=== PATIENT | female | born 1995 | race Caucasian/White ===

== ENCOUNTER 2021-04-16 10:06 | Outpatient (CLI) | payer OTHER, SELFPAY ==
[2021-04-16 10:42] LABS: Basophils Percent Auto 0.3 % (0.2-1.2); Eosinophils Absolute Auto 0.1 K/mm3 (0-0.3); Hematocrit 31.9 % (37.0-47.0); Immature Granulocyte Absolute 0.05 K/mm3 (0.00-0.031); Immature Granulocyte Percent A 0.5 % (0-0.5); Lymphocytes Absolute Auto 1.48 K/mm3 (0.9-3.2); Lymphocytes Percent Auto 14.4 % (18.3-44.2); Mean Corpuscular HGB Conc 31.3 g/dl (32-36); Mean Corpuscular Hemoglobin 24.8 pg (26-34); Mean Corpuscular Volume 79.2 fl (80-100); Monocytes Absolute Auto 0.7 K/mm3 (0.1-0.6); Monocytes Percent Auto 6.6 % (2.6-8.5); Neutrophils Absolute Auto 7.9 K/mm3 (1.3-6.7); Neutrophils Percent Auto 77.2 % (45.5-73.1); Platelet Count Result 228 k/mm3 (150-375); Red Blood Count 4.03 M/mm3 (4.2-5.4); Red Cell Distribution Width 14.1 % (11.5-14.5); White Blood Count 10.3 K/mm3 (4.5-10.0)
[2021-04-16 10:45] VITALS: BP 123/87; PULSE 135
[2021-04-16 10:52] LABS: Alanine Aminotransferase 11 U/L (4-35); Albumin Level 3.7 g/dL (3.5-5.1); Alkaline Phosphatase 138 U/L (38-126); Anion Gap 9 mmol/L (8-16); Aspartate Amino Transferase 18 U/L (14-36); Bilirubin,Total 0.2 mg/dL (0.2-1.3); Blood Urea Nitrogen 5 mg/dL (7-17); Calcium 9.1 mg/dL (8.4-10.2); Carbon Dioxide 19 mmol/L (22-30); Chloride 110 mmol/L (98-107); Estimated Glomerular Filt Rate > 60; Glucose 82 mg/dL (65-110); Potassium 4.1 mmol/L (3.4-5.0); Sodium 138 mmol/L (137-145)
[2021-04-16 10:55] LABS: Add Urine Microscopic? YES; Appearance Urine Clear (Clear); Bacteria Urine Trace /hpf; Bilirubin Urine Negative (Negative); Blood Urine Negative (Negative); Color Urine Straw (Yellow); Glucose Urine UA Negative (Negative); Ketones Urine Negative (Negative); Leukocyte Esterase Ur 1+ LEU/UL (NEGATIVE); Mucus Urine Rare /lpf; Nitrate Urine Negative (Negative); Protein Urine Negative (Negative); RBC Urine 0-2 /hpf (0-2); Squamous Epithelial Cell Urine Many /hpf (Few); Urobilinogen Urine Negative mg/dL (<2.0); WBC Urine 0-3 /hpf (0-3)
[2021-04-16 11:00] VITALS: BP 140/89; PULSE 127
[2021-04-16 11:00] LABS: Creatinine Urine 12.4 mg/dL; Total Protein Urine Random 15 mg/dL; Ur Ttl Prot Creatinine Ratio 1.21 mg/mg (0-0.20)
[2021-04-16 11:09] LABS: Specific Grav Ur 1.003 (1.001-1.035)
[2021-04-16 11:16] VITALS: BP 122/80; PULSE 113
--- NOTE | 2021-04-16 11:23 | PC.NURSE ---
Grady Cavanaugh notified of BP's, Labs results and NST. Order for repeart P/C ration.
[2021-04-16 12:04] LABS: Creatinine Urine 54.6 mg/dL; Total Protein Urine Random 11 mg/dL
--- NOTE | 2021-04-16 12:14 | PC.NURSE ---
Grady Cavanaugh notified of repeat P/C ratio. Ok to dc home with 24 hour urine.
[2021-04-16 12:25] VITALS: BP 123/87; PULSE 128
== END 2021-04-16 12:25 | disposition home or self-care (01) ==
LOC: ANHOBOP 10:11 → ANHLDR 10:12
PROVIDERS: Advanced Practice Midwife; PCP Family Medicine; Visit Provider Obstetrics & Gynecology
DX: O13.9 Gestational [pregnancy-induced] hypertension without significant proteinuria, unspecified trimester (principal)
CPT/HCPCS: 36415; 59025; 80053; 81001; 82570; 84156; 84550; 85025; 87077; 87086; 87088; 99199

== ENCOUNTER 2021-04-17 13:06 | Outpatient (NON) | payer OTHER, SELFPAY ==
[2021-04-17 13:28] VITALS: BMI 35.9
[2021-04-17 15:40] LABS: Collection Time Urine 24 HOURS
[2021-04-17 15:41] LABS: Patient Weight 235 Lbs; Total Volume 24 Hour Urine 1300 ml
[2021-04-17 15:54] LABS: Creatinine Clearance Urine 231.1 ml/min (75-125); Creatinine Urine 129.1 mg/dL; Total Protein Urine 24 Hr 78 mg/24hr (28-141); Total Protein Urine Random 6 mg/dL
== END 2021-04-17 13:07 | disposition home or self-care (01) ==
LOC: ANHOBOP 13:10
PROVIDERS: PCP Family Medicine; Visit Provider Advanced Practice Midwife
DX: O13.9 Gestational [pregnancy-induced] hypertension without significant proteinuria, unspecified trimester (principal); Z3A.00 Weeks of gestation of pregnancy not specified
CPT/HCPCS: 81050; 82575; 84156

== ENCOUNTER 2021-04-19 16:48 | Inpatient (IN) | payer OTHER, SELFPAY ==
[2021-04-19] VITALS (14 sets, daily range): BP systolic 119–143; BP diastolic 76–87; PULSE 94–113; TEMP 36.6–37.2; BMI 35.2
--- NOTE | 2021-04-19 16:48 | LDADM ---
This patient, Afsaneh Tarango, was admitted to Labor/Delivery/Recovery 105 on 04/19/21 at 16:48. Plans for labor, pain management and were discussed with patient. Patient/family oriented to hospital policies and general routines including ID bracelet, bed and alarms, visiting hours, pain management, procedures, bathroom and other care routines, personal items, smoking policy, room service/diet and guest tray routines, infant security routines, and visiting hours. Patient/Family are encouraged to report perceived risks to care and to ask questions if they do not understand what they are told or what they should do. See OBIX for further documentation.
[2021-04-19 17:41] LABS: Basophils Percent Auto 0.3 % (0.2-1.2); Eosinophils Absolute Auto 0.1 K/mm3 (0-0.3); Eosinophils Percent Auto 0.6 % (0-4.4); Hematocrit 30.7 % (37.0-47.0); Hemoglobin 9.8 g/dL (12.0-15.0); Immature Granulocyte Absolute 0.09 K/mm3 (0.00-0.031); Immature Granulocyte Percent A 0.8 % (0-0.5); Lymphocytes Absolute Auto 1.45 K/mm3 (0.9-3.2); Lymphocytes Percent Auto 12.8 % (18.3-44.2); Mean Corpuscular HGB Conc 31.9 g/dl (32-36); Mean Corpuscular Hemoglobin 24.9 pg (26-34); Mean Corpuscular Volume 77.9 fl (80-100); Mean Platelet Volume 11.5 fl (7.4-10.4); Monocytes Absolute Auto 0.8 K/mm3 (0.1-0.6); Neutrophils Absolute Auto 8.9 K/mm3 (1.3-6.7); Neutrophils Percent Auto 78.5 % (45.5-73.1); Platelet Count Result 248 k/mm3 (150-375); Red Blood Count 3.94 M/mm3 (4.2-5.4); Red Cell Distribution Width 14.4 % (11.5-14.5); White Blood Count 11.3 K/mm3 (4.5-10.0)
[2021-04-19] MEDS: DINOPROSTONE 10 MG VAG INSERT VAGINAL (17:54)
[2021-04-19] MEDS: fentaNYL CITRATE INJ (*CRX) 100 MCG/2 ML VIAL 50 MCG IV PUSH (21:34)
[2021-04-19] MEDS: fentaNYL CITRATE INJ (*CRX) 100 MCG/2 ML VIAL IV PUSH (23:26)
[2021-04-20] VITALS (221 sets, daily range): BP systolic 88–143; BP diastolic 17–93; PULSE 84–170; RESP 16–18; TEMP 36.5–37.4; O2SAT 94–100
[2021-04-20] MEDS: fentaNYL CITRATE INJ (*CRX) 100 MCG/2 ML VIAL IV PUSH ×2 (01:20→03:09)
[2021-04-20] MEDS: LACTATED RINGERS 1,000 ML 125 ML IV CONT (05:41)
[2021-04-20] MEDS: OXYTOCIN 30 UNITS/NS 500 ML 30 UNITS/500 ML BAG 6 UNITS IV CONT (06:12)
--- NOTE | 2021-04-20 06:25 | WPDANESEPP ---
Anes - Eval Pre Procedure Procedure: labor epidural Date/Time: 04/20/21 06:25 Surgeon: clayton Pre Op Diagnosis: IOL Patient Data Age: 25 Gender: F Height: 1.73 m Weight: 105 kg Last Vital Signs Temp 36.8 C 04/20/21 05:42 Pulse 105 H 04/20/21 05:30 Resp 18 04/20/21 05:42 BP 127/75 04/20/21 05:30 Allergies Allergy/AdvReac Type Severity Reaction Status Date / Time adhesive Allergy Redness of Verified 04/19/21 17:46 Skin Home Medications Medication Instructions Recorded Confirmed Type aspirin [Aspirin Low Dose] 81 mg PO DAILY 04/03/21 04/19/21 History prenat.vits,indu,jiv-xqtd-raoxf 1 tablet PO DAILY 04/03/21 04/19/21 History [ #2] Laboratory Tests 04/19/21 04/19/21 04/19/21 17:24 17:24 17:24 WBC 11.3 K/mm3 H K/mm3 (4.5-10.0) RBC 3.94 M/mm3 L M/mm3 (4.2-5.4) Hgb 9.8 g/dL L g/dL (12.0-15.0) Hct 30.7 % L % (37.0-47.0) MCV 77.9 fl L fl (80-100) MCH 24.9 pg L pg (26-34) MCHC 31.9 g/dl L g/dl (32-36) RDW 14.4 % % (11.5-14.5) Plt Count 248 k/mm3 k/mm3 (150-375) MPV 11.5 fl H fl (7.4-10.4) Immature Gran % (Auto) 0.8 % H % (0-0.5) Neut % (Auto) 78.5 % H % (45.5-73.1) Lymph % (Auto) 12.8 % L % (18.3-44.2) [place] % (Auto) 7.0 % % (2.6-8.5) Eos % (Auto) 0.6 % % (0-4.4) Baso % (Auto) 0.3 % % (0.2-1.2) Lymph # (Auto) 1.45 K/mm3 K/mm3 (0.9-3.2) [place] # (Auto) 0.8 K/mm3 H K/mm3 (0.1-0.6) Eos # (Auto) 0.1 K/mm3 K/mm3 (0-0.3) Baso # (Auto) 0.0 K/mm3 K/mm3 (0.0-0.1) Abs Immat Gran (auto) 0.09 K/mm3 H K/mm3 (0.00-0.031) Absolute Neuts (auto) 8.9 K/mm3 H K/mm3 (1.3-6.7) Absolute Nucleated RBC 0.0 K/mm3 K/mm3 (0.0-0.012) Nucleated RBC % 0.0 % % (0.0-0.2) RPR Pending Blood Type A Positive Antibody Screen Negative Patient hx anesthesia problems: none Family hx anesthesia problems: none Results Review: All pre-operative results and documents have been reviewed as part of the pre-operative evaluation. [facility] Family History Family History (Updated 04/03/21 @ 15:41 by Yan Thakur RN) Grandparent Hypertension Mother Hypertension Arthritis Other Multiple sclerosis Social History Social History Smoking status: Never smoker Second hand tobacco smoke exposure: No Substance use: never Spiritual care concerns: No Exam Day of Procedure 04/20/21 06:25
[2021-04-20] MEDS: ONDANSETRON INJ 4 MG/2 ML VIAL IV PUSH (07:36)
--- NOTE | 2021-04-20 07:52 | WPDOBADMIT ---
Obstetrics - Admit Note Admission Note: 25 y/o G1 @ 38 weeks here for induction of labor d/t GHTN. VSS Pt comfortable with epidural Contractions regular FHR category 2 Cervix 2-3/80/-3. SROM occured with exam. Slight blood tinge to fluid. Large amount of fluid noted. Anticipate record reviewed. No pertinent additions to the history and/or any subsequent changes in the physical findings that are not consistent with the expected course of the were found. Additions to the history and/or subsequent changes in the physical findings follow. None.
[2021-04-20 12:44] LABS: Rapid Plasma Reagin Non-Reactive (NonReactive)
--- NOTE | 2021-04-20 18:34 | PM.OBPRVD ---
OB - Delivery Note Procedure Delivery date: 04/20/21 events: Induced HTN Intrapartal events: None Induction method: per pitocin protocol Delivery monitor: external FHT and external uterine Episiotomy description: None Laceration Description: Perineal - 1st Degree and Vaginal - 2nd Degree Quantitative Blood Loss (ml): 97 Anesthesia type: Epidural Narrative: Called at 1753 for delivery. delivered at 1758 just before I walked in the door. delivered without pushing. Delayed cord clamping. Delivery of placenta and repair complete. Mother and baby in stable condition. Cord gasses collected and handed off to staff. Baby Date of : 04/20/21 Time of : 17:58 Weeks of gestation at delivery: 38 gender: Male presentation: vertex Placenta delivery description: Spontaneous cord vessel description: Nuchal Cord, Loose and Reduced
[2021-04-20] MEDS: OXYTOCIN 30 UNITS/NS 500 ML 30 UNITS/500 ML BAG 125 UNITS IV CONT (18:39)
[2021-04-20] MEDS: ACETAMINOPHEN 325 MG TABLET 650 MG PO (20:45)
[2021-04-20] MEDS: WITCH HAZEL 40 PADS 1 PAD TOPICAL (20:46)
[2021-04-20] MEDS: BENZOCAINE 20% AER SPR (*SP) 56 GM CAN 1 SPRAY TOPICAL (20:46)
--- NOTE | 2021-04-20 21:01 | OBPPTRN ---
Patient transferred to post room #279 via wheelchair. Support person present. Oriented to unit, room, information board, rooming in, admission packet and security measures. Patient verbalizes understanding. with patient.
[2021-04-20] MEDS: IBUPROFEN 600 MG TABLET PO (23:07)
[2021-04-21 04:05] VITALS: BP 105/67; PULSE 88; RESP 16; TEMP 36.7; O2SAT 99
[2021-04-21] MEDS: IBUPROFEN 600 MG TABLET PO ×2 (04:36→17:39)
[2021-04-21 05:45] LABS: Hematocrit 27.9 % (37.0-47.0); Hemoglobin 8.8 g/dL (12.0-15.0)
--- NOTE | 2021-04-21 07:57 | PM.OBPNVD ---
OB - PN: Subj Subjective Date/time seen: 04/21/21 07:57 Patient comments: no complaints baby status: doing well OB - PN: Obj Data Labs CBC & Chem 7: 04/21/21 04:24 Labs: Laboratory Results - last 24 hr 04/19/21 04/21/21 17:24 04:24 Hgb 8.8 L Hct 27.9 L RPR Non-reactive OB - PN A/P Plan day: 1 Plan: routine care Time Spent With Patient Time: Total time spent is greater than 50% in coordination of care (as documented) at patient's floor/unit and/or counseling patient: Time with patient: less than 15 minutes Review of Systems Review of Systems: All systems reviewed & are unremarkable except as noted in HPI and below Exam Narrative: Fundus firm and vaginal flow controlled. No lower ext redness, warmth, or edema. Negative homans. Denies h/a, v/d or e/p. Reflexes normal. Const: General: comfortable Chest: Breast/axilla inspection: normal inspection of the breasts Resp: Effort & Inspection: normal respiratory effort Cardio: Rate: regular rate GI: GI Palp: Yes Soft to palpation Psych: Appearance: grossly normal Affect: normal affect Attitude: cooperative Thought content: Yes Normal thought content present Judgement: Good judgement present (Psych)
[2021-04-21 08:00] VITALS: BP 120/82; PULSE 93; RESP 16; TEMP 36.4; O2SAT 98
[2021-04-21] MEDS: MULTIVIT/MIN/PREN/FOL AC/IRON TABLET 1 TAB PO (08:32)
[2021-04-21] MEDS: POLYSACCHARIDE IRON COMPLEX 150 MG CAPSULE PO ×2 (08:32→17:38)
[2021-04-21] MEDS: DOCUSATE SODIUM 100 MG CAPSULE PO ×2 (08:32→17:39)
--- NOTE | 2021-04-21 08:50 | PC.NURSE ---
Consult with pt., mother reports she had infant to breast once and then bottle fed. Mother wishes to pump and bottle feed. Breast pump provided due to mother's wishes. Instructions given on breast pump care and usage, pumping schedule, nipple care, and collection and storage of breast milk. Encouraged [id number]-cc-[id number], breast massage and manual expression to stimulate supply. Assessed patient for correct flange size, placement and draw. Patient verbalizes and demonstrates understanding of instructions. Discussed colostrum vs milk supply and mother may not see more than a few drops the first few days, milk should transition in by day 3 and she may see more volume pumped per session.
[2021-04-21 12:15] VITALS: BP 127/87; PULSE 107; RESP 16; TEMP 36.6; O2SAT 98
--- NOTE | 2021-04-21 13:09 | WPDANLDPN2 ---
Anes-Prog Note L&D Date/Time: 04/21/21 13:09 Comfortable throughout: labor and delivery Neuraxial method: epidural Epidural/Spinal procedure site: clean & non-tender Neuro status: Neuro function grossly intact. Cardiovascular status: normal Respiratory status: normal Airway patency: baseline Mental status: baseline Post-Op hydration status: normal Vital Signs: Last Vital Signs Temp 36.4 C L 04/21/21 08:00 Pulse 93 04/21/21 08:00 Resp 16 04/21/21 08:00 BP 120/82 04/21/21 08:00 Pulse Ox 98 04/21/21 08:00 Pain score (VAS): 08/03 I/O: Intake & Output 04/20/21 04/21/21 04/21/21 23:59 07:59 15:59 Intake Total 500 1000 Output Total 230 500 Balance 270 500 Post-procedural complaints: none Patient feedback: Patient satisfied with anesthetic care.
[2021-04-21 16:00] VITALS: BP 127/84; PULSE 103; RESP 16; TEMP 37.1; O2SAT 98
[2021-04-21 20:00] VITALS: BP 137/94; PULSE 110; RESP 18; TEMP 36.8; O2SAT 100
[2021-04-22 00:35] VITALS: BP 121/80
[2021-04-22 04:30] VITALS: BP 127/75
--- NOTE | 2021-04-22 07:35 | PM.OBPNVD ---
OB - PN: Subj Subjective Date/time seen: 04/22/21 07:35 Patient comments: no complaints baby status: doing well OB - PN: Obj Data Labs CBC & Chem 7: 04/21/21 04:24 OB - PN A/P Plan day: 2 Plan: discharge home Time Spent With Patient Time: Total time spent is greater than 50% in coordination of care (as documented) at patient's floor/unit and/or counseling patient: Review of Systems Review of Systems: All systems reviewed & are unremarkable except as noted in HPI and below Exam Const: General: cooperative Nutritional Appearance: average body habitus Psych: Affect: normal affect Attitude: cooperative Thought process: Normal thought process present Insight: Good insight present (Psych) Judgement: Good judgement present (Psych)
--- NOTE | 2021-04-22 07:38 | PM.OBDSVD ---
DS: Admitting Diagnosis Discharge Date 04/22/21 Admitting Diagnosis IOL OB - DS: Summary OB Procedures : None OB Procedures Intrapartum: Spontaneous Vag Delivery OB Procedures: : None Time Spent with Patient Time attestation: Total time spent providing and/or coordinating discharge services: DS: Data Data Completed and Pending Pending studies at discharge: Pending at discharge 04/20/21 21:16 Surgical [PTH] Routine Discharge Plan Discharge Attending physician on discharge: Kyaw Cartagena Discharging Clinician: Cassandra Cavanaugh Patient Disposition: Home, Self-Care Activity: pelvic rest Diet: regular Patient Instructions: Antibiotic Form Stand Alone Forms: General Discharge Information Follow-up/Referrals: Mary Holcomb CNM [Certified Nurse Professional Wrestler] - 4 Weeks Discharge Medications: New polysaccharide iron complex 150 mg iron Capsule 150 mg PO BIDWM Qty: 60 RF: 0 Continued #2 Tablet 1 tablet PO DAILY RF: 0 Discontinued aspirin [Aspirin Low Dose] 81 mg Tablet,Delayed Release (Dr/Ec) 81 mg PO DAILY RF: 0 Date of admission: 04/19/21 16:48 Primary Care Provider: Carolina Ruvalcaba Admitting Provider: Kyaw Cartagena Attending physician on admission: Kyaw Cartagena Condition: Stable
[2021-04-22 08:30] VITALS: PULSE 116; RESP 18; TEMP 37; O2SAT 99
[2021-04-22] MEDS: MULTIVIT/MIN/PREN/FOL AC/IRON TABLET 1 TAB PO (08:32)
[2021-04-22] MEDS: DOCUSATE SODIUM 100 MG CAPSULE PO ×2 (08:32→16:27)
[2021-04-22] MEDS: POLYSACCHARIDE IRON COMPLEX 150 MG CAPSULE PO ×2 (08:32→16:27)
--- NOTE | 2021-04-22 17:17 | PC.NURSE ---
Patient viewed the discharge video Mother & Baby Care, The First Two Weeks . Patient was given the opportunity and encouraged to ask questions. Patient verbalized understanding of information shared and has been given the mother/baby guide for home reference.
[2021-04-24 07:50] VITALS: BP 139/88; PULSE 93; RESP 16; TEMP 36.9; O2SAT 99
== END 2021-04-22 18:11 | disposition home or self-care (01) | DRG 807 ==
LOC: ANHLDR 16:51 → ANHOB2 04-20 22:56
PROVIDERS: Advanced Practice Midwife; Admitting Provider Obstetrics & Gynecology; PCP Family Medicine; Visit Provider Obstetrics & Gynecology
DX: O13.4 Gestational [pregnancy-induced] hypertension without significant proteinuria, complicating childbirth (principal); Z37.0 Single live birth; Z3A.38 38 weeks gestation of pregnancy; O70.1 Second degree perineal laceration during delivery; O36.8330 Maternal care for abnormalities of the fetal heart rate or rhythm, third trimester, not applicable or unspecified
CPT/HCPCS: 36415; 59025; 80053; 81001; 81050; 82570; 82575; 84156; 84550; 85014; 85018; 85025; 86592; 86850; 86900; 86901; 87077; 87086; 87088; 88307; 99199; A9270; J2405; J2590; J2795; J3010; J7120

== ENCOUNTER 2023-01-15 12:29 | Emergency (ER) | payer OTHER, SELFPAY ==
[2023-01-15] VITALS (19 sets, daily range): BP systolic 130–150; BP diastolic 78–96; PULSE 88–125; RESP 14–24; O2SAT 97–100
--- NOTE | ~2023-01-15 | XR_ITS ---
XR chest 2V DATE: 01/15/2023 13:03 INDICATION: Chest pain, dizziness TECHNIQUE: PA and lateral views COMPARISON: None FINDINGS: Normal heart size. No hilar or mediastinal enlargement. No pulmonary infiltrate or consolid ation, pleural effusion or pulmonary vascular congestion or pneumothorax. Included skeletal structure s are unremarkable. IMPRESSION: No active cardiopulmonary disease Reviewed, dictated and finalized at location A.
--- NOTE | 2023-01-15 12:32 | ECG_ITS ---
Measurements Intervals Wayan Rate: 123 P: 56 RI: 132 QRS: 38 QRSD: 96 T: 22 QT: 322 QTc: 461 Interpretive Statements SINUS TACHYCARDIA OTHERWISE WITHIN NORMAL LIMITS NO PREVIOUS ECG AVAILABLE FOR COMPARISON Electronically Signed On 01-16-2023 8:21:36 CDT by Kolby Mendenhall M.D.
--- NOTE | 2023-01-15 13:28 | ED.CHESTPAIN ---
HPI - Chest Pain General Chief Complaint: Chest Pain Stated Complaint: chest pain Time Seen by Provider: 01/15/23 13:09 History of Present Illness HPI narrative: 27-year-old female who presents to the emergency room today for complaints of intermittent left-sided chest pain. She says that she has been getting chest pain off and on for several months but it has been getting worse over the past few weeks and seems to be a little more painful today. She also has episodic feelings of dizziness/vertigo. She notices this occasionally whenever she turns her head or changes position. She denies feeling short of breath. No fever or chills. No nausea or vomiting. She has a history of hypertension in . Her child is 18 months old. She is noted to have elevated heart rate today. Related Data Home Medications Medication Instructions Recorded Confirmed prenat.vits,indu,kec-gljb-crdvi 1 tablet PO DAILY 04/03/21 04/19/21 Allergies Allergy/AdvReac Type Severity Reaction Status Date / Time adhesive Allergy Redness of Verified 01/15/23 12:44 Skin Review of Systems Review of Systems: CONSTITUTIONAL: Denies fever, chills, or sweats. EYES: Denies visual changes, redness, or discharge. ENT: Denies rhinorrhea, congestion, sore throat, or otalgia. CARDIOVASCULAR: As per HPI RESPIRATORY: Denies cough or dyspnea. GASTROINTESTINAL: Denies abdominal pain, nausea, vomiting, or diarrhea. GENITOURINARY: Denies dysuria or hematuria. SKIN: Denies rash or itching. MUSCULOSKELETAL: Denies back pain, joint pain, or myalgia. NEUROLOGIC: As per HPI, no headache. PSYCHIATRIC: Denies anxiety or depression. [facility] Family History Family History Grandparent Hypertension Mother Hypertension Arthritis Other Multiple sclerosis Social History Social History Smoking status: Never smoker Second hand tobacco smoke exposure: No Substance use: never Spiritual care concerns: No Exam Narrative: GENERAL: Well-appearing, well-nourished, and in no acute distress. HEAD: Normocephalic, atraumatic. EYES: PERRLA and EOMI. ENT: Nares clear, no rhinorrhea or epistaxis. Mucous membranes moist. Oropharynx without tonsillar hypertrophy exudate or other lesions. Bilateral TMs pearly bishop nonbulging NECK: Supple. No adenopathy or masses. CHEST: Clear to auscultation. No respiratory distress. No wheezes rales or rhonchi HEART: Regular rate and rhythm. No murmur heard. Normal peripheral pulses. ABDOMEN: Soft, nontender, nondistended, normal active bowel sounds. EXTREMITIES: Normal range of motion. No edema. SKIN: Warm, dry, no rash. NEURO: No focal deficits. Alert and oriented x3. PSYCH: Normal mood and affect. Course Vital Signs Vital signs: Vital Signs Pulse Rate 115 H 01/15/23 12:37 Respiratory Rate 16 01/15/23 12:37 Blood Pressure 150/95 H 01/15/23 12:37 Pulse Oximetry 100 01/15/23 12:37 Oxygen Delivery Room Air 01/15/23 12:37 Pulse Rate 88 01/15/23 15:30 Respiratory Rate 18 01/15/23 15:30 Blood Pressure 133/83 01/15/23 15:01 Pulse Oximetry 100 01/15/23 15:30 Oxygen Delivery Room Air 01/15/23 12:37 MDM - Chest Pain MDM Narrative Medical decision making narrative: Negative work up for chest pain Dimer negative, PE very unlikely Pt reports improvement in dizziness symptoms after IV fluids. Will discharge to home. Advised follow up with primary care and may want referral to cardiology for additional outpatient evaluation. Lab Data 01/15/23 14:09 01/15/23 14:09 Labs: Lab Results 01/15/23 01/15/23 Range/Units 14:08 14:09 WBC 6.0 (4.5-10.0) K/mm3 RBC 5.27 (4.2-5.4) M/mm3 Hgb 12.7 D (12.0-15.0) g/dL Hct 40.3 (37.0-47.0) % MCV 76.5 L (80-100) fl MCH 24.1 L (26-34) pg MCHC 31.5 L (32-36) g/d
[2023-01-15] MEDS: SODIUM CHLORIDE 0.9% IV 1,000 ML 999 ML IV CONT (14:11)
[2023-01-15] MEDS: ASPIRIN 81 MG CHEWABLE TABLET 324 MG PO (14:12)
[2023-01-15 14:15] LABS: Basophils Absolute Auto 0.1 K/mm3 (0.0-0.1); Basophils Percent Auto 0.8 % (0.2-1.2); Eosinophils Percent Auto 0.3 % (0-4.4); Hematocrit 40.3 % (37.0-47.0); Hemoglobin 12.7 g/dL (12.0-15.0); Immature Granulocyte Absolute 0.02 K/mm3 (0.00-0.031); Immature Granulocyte Percent A 0.3 % (0-0.5); Lymphocytes Absolute Auto 1.19 K/mm3 (0.9-3.2); Lymphocytes Percent Auto 19.8 % (18.3-44.2); Mean Corpuscular HGB Conc 31.5 g/dl (32-36); Mean Corpuscular Hemoglobin 24.1 pg (26-34); Mean Corpuscular Volume 76.5 fl (80-100); Mean Platelet Volume 10.7 fl (7.4-10.4); Monocytes Absolute Auto 0.4 K/mm3 (0.1-0.6); Neutrophils Absolute Auto 4.4 K/mm3 (1.3-6.7); Neutrophils Percent Auto 72.8 % (45.5-73.1); Platelet Count Result 303 k/mm3 (150-375); Red Blood Count 5.27 M/mm3 (4.2-5.4); Red Cell Distribution Width 14.9 % (11.5-14.5)
[2023-01-15 14:24] LABS: Alanine Aminotransferase 21 U/L (6-35); Albumin Level 4.6 g/dL (3.5-5.1); Alkaline Phosphatase 81 U/L (38-126); Anion Gap 10 mmol/L (8-16); Aspartate Amino Transferase 31 U/L (14-36); Bilirubin,Total 0.4 mg/dL (0.2-1.3); Blood Urea Nitrogen 8 mg/dL (7-17); Calcium 9.5 mg/dL (8.4-10.2); Carbon Dioxide 24 mmol/L (22-30); Chloride 106 mmol/L (98-107); Estimated CRCL calculation 126 ml/min; Estimated Glomerular Filt Rate > 60; Glucose 100 mg/dL (65-110); Lipase 116 U/L (23-300); Potassium 3.9 mmol/L (3.4-5.0); Sodium 140 mmol/L (137-145)
[2023-01-15 14:24] LABS: Prothrombin Time 13.6 Seconds (11.1-14.7)
[2023-01-15 14:25] LABS: Partial Thromboplastin Time 28.7 SECONDS (22.3-36.8)
[2023-01-15 14:36] LABS: Troponin I < 0.012 ng/mL (0.000-0.034)
[2023-01-15 15:22] LABS: D Dimer 0.34 ug/mL (<0.48)
== END 2023-01-15 16:32 | disposition home or self-care (01) ==
PROVIDERS: Nurse Practitioner Family; Preventive Medicine Aerospace Medicine; Emergency Provider Emergency Medicine; PCP Family Medicine
DX: R07.89 Other chest pain (principal); R42 Dizziness and giddiness
CPT/HCPCS: 36415; 71046; 80053; 83690; 84484; 85025; 85380; 85610; 85730; 93005; 96360; 99284; A9270; J7030

== ENCOUNTER 2023-01-19 11:12 | Outpatient (CLI) | payer OTHER, SELFPAY ==
[2023-01-19 18:40] LABS: Kit Draw Collected
== END 2023-01-19 11:13 | disposition home or self-care (01) ==
LOC: ANHGOSHLAB 11:14
PROVIDERS: PCP Family Medicine; Visit Provider Family Medicine
DX: F41.9 Anxiety disorder, unspecified (principal); R63.4 Abnormal weight loss; R71.8 Other abnormality of red blood cells
CPT/HCPCS: 36415

== ENCOUNTER 2023-03-14 14:35 | Outpatient (CLI) | payer OTHER, SELFPAY ==
[2023-03-14 18:09] LABS: Basophils Absolute Auto 0.1 K/mm3 (0.0-0.1); Eosinophils Absolute Auto 0.1 K/mm3 (0-0.3); Eosinophils Percent Auto 1.3 % (0-4.4); Hematocrit 41.9 % (37.0-47.0); Hemoglobin 13.4 g/dL (12.0-15.0); Immature Granulocyte Absolute 0.02 K/mm3 (0.00-0.031); Immature Granulocyte Percent A 0.3 % (0-0.5); Lymphocytes Absolute Auto 1.66 K/mm3 (0.9-3.2); Lymphocytes Percent Auto 27.6 % (18.3-44.2); Mean Corpuscular Hemoglobin 26.4 pg (26-34); Mean Corpuscular Volume 82.5 fl (80-100); Mean Platelet Volume 11.1 fl (7.4-10.4); Monocytes Absolute Auto 0.5 K/mm3 (0.1-0.6); Monocytes Percent Auto 7.7 % (2.6-8.5); Neutrophils Absolute Auto 3.7 K/mm3 (1.3-6.7); Neutrophils Percent Auto 62.1 % (45.5-73.1); Platelet Count Result 306 k/mm3 (150-375); Red Blood Count 5.08 M/mm3 (4.2-5.4); Red Cell Distribution Width 17.2 % (11.5-14.5)
[2023-03-18 10:43] LABS: Immunoglobulin A 247 mg/dL (47-310); TTG IGA AB <1.0 U/mL (<15.0)
== END 2023-03-14 14:36 | disposition home or self-care (01) ==
PROVIDERS: PCP Family Medicine; Visit Provider Family Medicine
DX: E61.1 Iron deficiency (principal)
CPT/HCPCS: 36415; 82728; 82784; 85025; 86364

== ENCOUNTER → 2023-04-18 14:53 | Outpatient (CLI) | payer OTHER, SELFPAY ==
--- NOTE | ~2023-04-18 | US_ITS ---
US abdomen complete EXAMINATION: US Abdomen Complete INDICATION: Right upper quadrant pain PROCEDURE: Realtime High Resolution abdomen ultrasound. COMPARISON: No prior studies for comparison FINDINGS: Gallbladder within normal limits. No gallstones, pericholecystic fluid, gallbladder wall t hickening or biliary dilatation. Common bile duct measures 3 mm. Liver echotexture liver echotexture is increased, consistent with fatty infiltration.. Pancreas with in normal limits. Pancreatic tail is obscured by bowel gas. Spleen is unremarkeable. Renal echotext ure is within normal limits bilaterally without hydronephrosis, contour deforming mass or renal stone . Right kidney measures 10.6 cm. Left kidney measures 12.5 cm. Visualized aspects of the aorta and IVC are within normal limits. Portal vein is patent. No sonograph ic Langford's sign indicated by the technologist. IMPRESSION: 1: Hepatic steatosis. Reviewed, dictated and finalized at location L. IMPRESSION: 1: Hepatic steatosis.
--- NOTE | ~2023-04-18 | US_ITS ---
US soft tissue abdomen 04/18/2023 15:22 Indication: Localized swelling. Palpable mass. Procedure: High-resolution ultrasound of the right upper abdominal soft tissues in the area of palpab le concern Comparison: No prior studies for comparison. Findings: Normal heterogeneous soft tissues are identified in the right upper abdominal anterior wall without discrete solid or cystic mass. Impression: 1: Normal limited soft tissue ultrasound of the right upper abdomen in the area of palpable concern. No discrete mass. Reviewed, dictated and finalized at location L. Impression: 1: Normal limited soft tissue ultrasound of the right upper abdomen in the area of palpable concern. No discrete mass.
== END ==
PROVIDERS: PCP Physician Assistant; Visit Provider Physician Assistant
DX: R10.11 Right upper quadrant pain (principal); R22.2 Localized swelling, mass and lump, trunk; K76.0 Fatty (change of) liver, not elsewhere classified
CPT/HCPCS: 76700; 76705

== ENCOUNTER 2023-12-23 01:06 | Day surgery (SDC) | payer OTHER, SELFPAY ==
[2023-12-13 10:37] VITALS: BMI 32.4
--- NOTE | 2023-12-13 10:43 | PC.NURSE ---
Report to the Outpatient Waiting Room, entrance under the green pavilion located off [facility], at time _1000_ on date _[id number]_. Planned Procedure Time: _1200_. Time changes happen often and if your time is changed the preop area will call you the afternoon before. - You and your visitor will be asked to self-screen and do not enter if you have any COVID symptoms. - A mask is optional within the hospital at this time. Patients may have clear liquids (water, carbonated beverages, clear teas, apple juice) until 3 hours prior to surgery with a maximum of 20 ounces. - No food from midnight until time of surgery Take the following medications with a SIP of water the morning of surgery: ___None DO NOT STOP ANY OF YOUR OTHER PRESCRIPTION MEDICATIONS PRIOR TO SURGERY ?EXCEPT THE FOLLOWING Medications to discontinue per physician __Vitamins Date to take last [id number] Please no make-up, nail romansh, hairspray, perfume, deodorant, or body powder the day of surgery. No jewelry (including any body piercings) or valuables the day of surgery, leave them at home. Please take a shower or bath the night before, or the morning of, surgery with an antibacterial soap. Wear comfortable, loose fitting clothing. - Jewelry must be removed prior to entering the operating room. Rings and piercings that are not removed may be cut off. - The hospital will not accept responsibility for valuables. - Please leave all valuables, including medications, at home the day of surgery. If you are going home after surgery, a licensed combine driver must drive you home. - NO public transportation without another adult if you receive anesthesia. - We recommend that an adult stay with you for 24 hours following discharge. - We also recommend that you do not drive, make important decision, drink alcoholic beverages, or take any drugs that were not prescribed by your health care provider for at least 24 hours after your discharge time. Follow any additional instructions given to you from your surgeon. If you or anyone in your household have experienced Covid symptoms in the past week, please notify your surgeon or the nurse liaison at the phone number below for possible testing. Telephone instructions given to __Maggie___and asked if any additional questions and then verbalized understanding. Patient advised to call surgeon office or pre surgery nurse liaison [phone] if any additional questions.
--- NOTE | ~2023-12-23 | XR_ITS ---
EXAMINATION: XR fluoroscopy no charge DATE: 12/23/2023 13:52 INDICATION: Endometrial polyp. TECHNIQUE: 222 intraoperative fluoroscopic views of the pelvis were obtained. I was not present. Fluo roscopy exposure time was 31 seconds. COMPARISON: None. FINDINGS: The intrauterine cavity is normal in morphology. The fallopian tubes are normal in caliber. There is normal free intraperitoneal spillage of contrast on either side. IMPRESSION: 1. Normal hysterosalpingogram. Reviewed, dictated and finalized at location A.
--- NOTE | 2023-12-23 09:53 | PM.IMHP ---
H&P: HPI History of Present Illness Date/Time: 12/23/23 09:53 Chief Complaint: endometrial polyp Narrative: Patient is a 28 year old who presents for hysteroscopy and polypectomy indicated for 1.2cm suspected endometrial polyp. She has been trying to conceive for over 1 year. Labwork has overall been normal. She had a pelvic US performed that demonstrated a 1.2cm lesion suspicious for a polyp. We discussed r/b/a of polypectomy and she desires to proceed with surgery. We also discussed investigation of tubal patency with HSG during her surgery as she has been trying to conceive for 13 months without success. Denies nausea, vomiting, abdominal pain or dysuria. Review of Systems Review of Systems: All systems reviewed & are unremarkable except as noted in HPI and below PMFSH Family History Family History Grandparent Hypertension Mother Hypertension Arthritis Other Multiple sclerosis Social History Social History Smoking status: Never smoker Second hand tobacco smoke exposure: No Alcohol intake: current Substance use: never Lack of Transportation: No Lack of Food: Never True Current Housing: I Have Housing Concerned About Future Housing: No Difficulty Paying Gas/Electric Bills: No Difficulty Paying for Meds: No Currently Unemployed: No Education: Trade/Vocational Certificate Difficulty w/ Childcare or Family Care: No Living arrangements: with family Spiritual care concerns: No Meds Home Medications and Allergies Home Medications Medication Instructions Recorded Confirmed Type prenat.vits,indu,jwp-bfef-tlmrs 1 tablet PO DAILY 04/03/21 12/13/23 History sertraline 50 mg tablet 50 mg PO DAILY #90 tabs 02/22/23 12/13/23 Rx cholecalciferol (vitamin D3) 125 125 mcg PO DAILY 12/13/23 12/13/23 History mcg (5,000 unit) tablet (Vitamin D3) Allergies Allergy/AdvReac Type Severity Reaction Status Date / Time adhesive Allergy Mild Redness of Verified 12/13/23 10:34 Skin Exam Const: General: comfortable and no acute distress HENMT: Mouth: Yes moist mucous membranes Eyes: General: appearance normal, both eyes and all related structures Resp: Effort & Inspection: normal respiratory effort Cardio: Rate: regular rate Rhythm: regular rhythm Skin: General skin exam: normal color Extrem: General: normal to inspection Psych: Mental Status: mental status grossly normal Assessment and Plan Assessment and plan (1) Endometrial polyp: Code(s): N84.0 - Polyp of corpus uteri Status: Acute Assessment and Plan: - 1.2cm lesion in endometrium suspicious for endometrial polyp seen on pelvic US - discussed that this may be related to infertility, recommend removal via hysteroscopic polypectomy - r/b/a of the procedure discussed; patient voices understanding and would like to move forward with surgery - discussed HSG for tubal patency due to TTC x >1 year, will try to schedule at the same time as HSC polypectomy to avoid further procedures or laparoscopy. r/b of procedure discussed with patient
[2023-12-23 10:04] VITALS: BP 152/82; PULSE 102; RESP 16; TEMP 37.3; O2SAT 100
[2023-12-23] MEDS: LACTATED RINGERS 1,000 ML 30 ML IV CONT (10:30)
[2023-12-23] MEDS: ACETAMINOPHEN 500 MG TABLET 1000 MG PO (10:45)
--- NOTE | 2023-12-23 11:30 | P.PNAN_ITS ---
Anes - Initial Pre Proc Eval Procedure: Operation Date: 12/23/23 12:00 Proposed Procedures p Hysteroscopy with Biopsy of Endometrium and/or Polypectomy, Hysterosalpingograph - Sam Hu MD Date/Time: 12/23/23 11:30 Surgeon: Sam Hu MD Pre Op Diagnosis: Endometrial Polyp Patient Data Age: 28 Gender: F Height: 1.73 m Weight: 97.4 kg Last Vital Signs Temp 37.3 C 12/23/23 10:04 Pulse 102 H 12/23/23 10:04 Resp 16 12/23/23 10:04 BP 152/82 H 12/23/23 10:04 Pulse Ox 100 12/23/23 10:04 O2 Del Method Room Air 12/23/23 10:04 Allergies Allergy/AdvReac Type Severity Reaction Status Date / Time No Known Allergies Allergy Verified 12/23/23 10:46 Home Medications Medication Instructions Recorded Confirmed Type prenat.vits,indu,gxr-kjzs-lsuvy 1 tablet PO DAILY 04/03/21 12/13/23 History sertraline 50 mg tablet 50 mg PO DAILY #90 tabs 02/22/23 12/13/23 Rx cholecalciferol (vitamin D3) 125 125 mcg PO DAILY 12/13/23 12/13/23 History mcg (5,000 unit) tablet (Vitamin D3) Patient hx anesthesia problems: post op nausea/vomiting (with fentanyl) Family hx anesthesia problems: none Results Review: All pre-operative results and documents have been reviewed as part of the pre- operative evaluation. [facility] Family History Family History Grandparent Hypertension Mother Hypertension Arthritis Other Multiple sclerosis Social History Social History Smoking status: Never smoker Second hand tobacco smoke exposure: No Alcohol intake: current Substance use: never Lack of Transportation: No Lack of Food: Never True Current Housing: I Have Housing Concerned About Future Housing: No Difficulty Paying Gas/Electric Bills: No Difficulty Paying for Meds: No Currently Unemployed: No Education: Trade/Vocational Certificate Difficulty w/ Childcare or Family Care: No Living arrangements: with family Spiritual care concerns: No Anes - Eval Final PreProcedure Day of Procedure 12/23/23 11:30 Patient weight: obese Heart: regular rate and rhythm Lungs: clear to auscultation Airway: Mallampati scale class II Neurological: alert and oriented Last oral intake: >/= 8 hours ASA classification: II Emergent: no Anesthetic plan: proceed Anesthesia type and monitoring: general GIVS and standard monitoring Results Review: All pre-operative results and documents have been reviewed as part of the pre- operative evaluation. Informed Consent: The patient's anesthetic plan and its attendant risks and benefits were discussed with the patient/family/POA. Questions were solicited and answers provided to the satisfaction of the patient/family/POA.
--- NOTE | 2023-12-23 12:28 | WPDHPUPDATE1 ---
History and Physical Update Update Date/Time: 12/23/23 12:28 History and Physical has been reviewed, including an updated exam of the patient. There are NO changes in the patient's condition. Risks, benefits, and alternatives have been discussed and questions answered. Patient agrees to proceed with procedure.
[2023-12-23 13:38] VITALS: BP 123/74; PULSE 94; RESP 18; O2SAT 96
[2023-12-23 14:10] VITALS: BP 107/91; PULSE 73; RESP 16
[2023-12-23 14:40] VITALS: BP 123/74; PULSE 79; RESP 16
--- NOTE | 2023-12-23 14:44 | W.PM.PROC2 ---
Procedure Note - Detailed Date of Procedure 12/23/23 Pre-op Diagnosis Endometrial Polyp and infertility Post-op Diagnosis Same Procedure Performed hysteroscopy, polypectomy and hysterosalpingography Surgeon Sam Hu MD Anesthesia MAC Findings large endometrial polyp attached to superior uterine cavity wall; normal appearing tubal ostia; bilateral spillage of contrast on HSG Description of Procedure The patient was taken to the operating room with IVFs running. She was placed into the dorsal supine position where she received MAC without any difficulty. The patient was placed in the dorsal lithotomy position using Dionte stirrups. EUA revealed findings as above. She was then prepped and draped in a normal sterile fashion. A time-out procedure was performed and all members of the OR team agreed on the patient and plan. A bivalve speculum was then inserted into the patient's vagina. The anterior lip of the cervix was grasped with a single tooth tenaculum. The uterus was gently sounded to 9 cm. The hysteroscope was then inserted into the uterine cavity using saline as the distension media and revealed the above findings. Both ostia were identified and pictures were taken. The morcellator was then introduced into the hysteroscope and calibrated. The tip of the morcellator was then applied to the polyp and activated. The polyp was removed to its base. At the end of the procedure, the uterine cavity was clear of all pathology. The specimen was sent for pathology. The hysteroscope and tenaculum were removed. The HSG catheter was inserted through the cervix and the balloon was inflated. THe c arm was positioned over the patient's pelvis. Fluoro was applied for 30 seconds while radio-opaque dye was instilled. Spillage was seen from both tubes, confirming tubal patency. The c arm was removed. The uterine catheter was removed. The speculum was then reintroduced into the vagina and the anterior lip of the cervix was hemostatic. The speculum was then removed. The patient tolerated the procedure well. Sponge, lap, and instrument counts were correct X2. The patient was taken out of the dorsal lithotomy position and was awakened from anesthesia. She was taken to the recovery room in stable condition. Pathology Yes Complications No immediate complications Condition Stable Disposition Same day
== END 2023-12-23 15:00 | disposition home or self-care (01) ==
PROVIDERS: Visit Provider Obstetrics & Gynecology
PROC: 0U5B8ZZ Destruction of Endometrium, Via Natural or Artificial Opening Endoscopic (ICD-10-PCS; CPT 58563; principal; 2023-12-23 12:00)
DX: N84.0 Polyp of corpus uteri (principal); N97.9 Female infertility, unspecified; E66.9 Obesity, unspecified; Z68.32 Body mass index [BMI] 32.0-32.9, adult
CPT/HCPCS: 58558; 88305; 99199; A9270; J1100; J2250; J2405; J2704; J3010; J7120

== ENCOUNTER 2024-05-03 04:39 | Emergency (ER) | payer OTHER, SELFPAY ==
--- NOTE | ~2024-05-03 | US_ITS ---
US OB <=14 wk fetus w TV 05/03/2024 08:10 Indication: Heavy vaginal bleeding positive test. Procedure: High-resolution pelvic ultrasound including transabdominal and transvaginal technique Comparison: No prior studies for comparison. Findings: Uterus is enlarged measuring 11.1 x 6.1 x 6.5 cm. Endometrium is significantly thickened an d heterogeneous measuring 2.2 cm. No intrauterine gestational sac or pole identified. Ovaries w ithin normal limits. Trace free fluid in the pelvis. Impression: 1: Thickened heterogeneous endometrium measuring 2.2 cm. No evidence for gestational sac or ubaldo e. Consider failed (cannot exclude retained products of conception), very early intrauterin e and ectopic . Recommend follow-up with serial quantitative beta-hCG levels and u ltrasound as clinically indicated. Reviewed, dictated and finalized at location B. Impression: 1: Thickened heterogeneous endometrium measuring 2.2 cm. No evidence for gestat ional sac or pole. Consider failed (cannot exclude retained pro ducts of conception), very early intrauterine and ectopic . Recommend follow-up with serial quantitative beta-hCG levels and ultrasound as clinically indicated.
[2024-05-03 04:40] VITALS: BP 148/92; PULSE 126; RESP 19; TEMP 36.4; O2SAT 100
--- NOTE | 2024-05-03 05:27 | ED.GENADULT ---
HPI - General Adult General Chief complaint: Vaginal Bleeding <Joshua King MD - Last Filed: 05/05/24 08:11> Stated complaint: 8 wks , bleeding <Joshua King MD - Last Filed: 05/05/24 08:11> Time Seen by Provider: 05/03/24 05:26 <Joshua King MD - Last Filed: 05/05/24 08:11> History of Present Illness HPI narrative: 28-year-old female presented emergency department for evaluation for increased vaginal bleeding. Patient is approximately 8 weeks has been having spotting over the last few days. Patient was diagnosed with a subchorionic hemorrhage and were up this morning with a large amount of blood in the bed. Patient does have some abdominal cramping. <Joshua King MD - Last Filed: 05/05/24 08:11> Related Data Home medications: Home Medications Medication Instructions Recorded Confirmed prenat.vits,indu,ukm-oxho-qtlpx 1 tablet PO DAILY 04/03/21 12/13/23 cholecalciferol (vitamin D3) 125 125 mcg PO DAILY 12/13/23 12/13/23 mcg (5,000 unit) tablet (Vitamin D3) <Joshua King MD - Last Filed: 05/05/24 08:11> Allergies/adverse reactions: Allergies Allergy/AdvReac Type Severity Reaction Status Date / Time No Known Allergies Allergy Verified 05/03/24 04:40 <Joshua King MD - Last Filed: 05/05/24 08:11> Review of Systems Review of Systems: All systems reviewed & are unremarkable except as noted in HPI and below <Joshua King MD - Last Filed: 05/05/24 08:11> [facility] Family History Family History: Family History Grandparent Hypertension Mother Hypertension Arthritis Other Multiple sclerosis <Joshua King MD - Last Filed: 05/05/24 08:11> Social History Social History: Social History Smoking status: Never smoker Second hand tobacco smoke exposure: No Alcohol intake: current Substance use: never Lack of Transportation: No Lack of Food: Never True Current Housing: I Have Housing Concerned About Future Housing: No Difficulty Paying Gas/Electric Bills: No Difficulty Paying for Meds: No Currently Unemployed: No Education: Trade/Vocational Certificate Difficulty w/ Childcare or Family Care: No Living arrangements: with family Spiritual care concerns: No <Joshua King MD - Last Filed: 05/05/24 08:11> Exam Narrative: APPEARANCE: Well appearing, no pain, no distress, well-nourished. HEAD: normocephalic, atraumatic. EYES: PERRLA/EOMI, conjunctivae clear. NOSE: Normal no drainage EARS:TMS clear with good light reflex. THROAT: Pharynx clear, no exudate. NECK: Supple. No adenopathy, no masses. RESPIRATORY: Airway patent, respirations nonlabored. Clear to auscultation bilaterally, no rales, rhonchi, wheezing. CARDIOVASCULAR: Regular rate and rhythm without murmurs rubs or gallops. ABDOMINAL: Soft, nontender, nondistended, normal bowel sounds Pelvic exam: Large clots within the vaginal vault with rapid refilling. MUSCULOSKELETAL: Moves all extremities. Strength/ROM intact, No edema, No calf tenderness. NEURO: Alert. Cranial nerves II through XII intact. Grossly intact SKIN: Warm, dry. Normal Color <Joshua King MD - Last Filed: 05/05/24 08:11> Course Vital Signs Vital signs: Vital Signs Temperature 97.6 F 05/03/24 04:40 Pulse Rate 126 H 05/03/24 04:40 Respiratory Rate 19 05/03/24 04:40 Blood Pressure 148/92 H 05/03/24 04:40 Pulse Oximetry 100 05/03/24 04:40 Oxygen Delivery Room Air 05/03/24 04:40 Temperature 97.6 F 05/03/24 04:40 Pulse Rate 100 05/03/24 09:19 Respiratory Rate 17 05/03/24 09:19 Blood Pressure 118/79 05/03/24 09:19 Pulse Oximetry 98 05/03/24 09:19 Oxygen Delivery Room Air 05/03/24 04:40 <Joshua King MD - Last Filed: 05/05/24 08:11> Vital Signs Temperature 97.6 F 05/03/24
[2024-05-03] MEDS: SODIUM CHLORIDE 0.9% IV 1,000 ML 999 ML IV CONT ×2 (06:13→06:14)
[2024-05-03 06:23] LABS: Basophils Percent Auto 0.4 % (0.2-1.2); Eosinophils Percent Auto 0.5 % (0-4.4); Hematocrit 39.3 % (37.0-47.0); Hemoglobin 13.4 g/dL (12.0-15.0); Immature Granulocyte Absolute 0.02 K/mm3 (0.00-0.031); Immature Granulocyte Percent A 0.2 % (0-0.5); Lymphocytes Absolute Auto 1.08 K/mm3 (0.9-3.2); Lymphocytes Percent Auto 12.9 % (18.3-44.2); Mean Corpuscular HGB Conc 34.1 g/dl (32-36); Mean Platelet Volume 10.4 fl (7.4-10.4); Monocytes Absolute Auto 0.7 K/mm3 (0.1-0.6); Neutrophils Absolute Auto 6.6 K/mm3 (1.3-6.7); Platelet Count Result 236 k/mm3 (150-375); Red Blood Count 4.79 M/mm3 (4.2-5.4); Red Cell Distribution Width 13.2 % (11.5-14.5); White Blood Count 8.4 K/mm3 (4.5-10.0)
[2024-05-03 06:36] LABS: Prothrombin Time 13.9 Seconds (11.1-14.7)
[2024-05-03 06:37] LABS: Partial Thromboplastin Time 28.6 Seconds (22.3-36.8)
[2024-05-03 06:40] VITALS: BP 123/87; PULSE 91; RESP 14; O2SAT 100
[2024-05-03 06:48] LABS: Alanine Aminotransferase 42 U/L (6-35); Albumin Level 4.2 g/dL (3.5-5.1); Alkaline Phosphatase 80 U/L (38-126); Anion Gap 10 mmol/L (4-12); Aspartate Amino Transferase 50 U/L (14-36); Bilirubin,Total 0.3 mg/dL (0.2-1.3); Blood Urea Nitrogen 9 mg/dL (7-17); Calcium 9.2 mg/dL (8.4-10.2); Carbon Dioxide 21 mmol/L (22-30); Chloride 105 mmol/L (98-107); Estimated CRCL calculation 139 ml/min; Estimated Glomerular Filt Rate > 60; Glucose 99 mg/dL (65-110); Potassium 3.8 mmol/L (3.4-5.0); Sodium 136 mmol/L (137-145)
--- NOTE | 2024-05-03 07:30 | PC.NURSE ---
Pt to u/s via w/c at this time.
[2024-05-03 08:05] VITALS: BP 139/94; PULSE 97; RESP 17; O2SAT 100
[2024-05-03 09:19] VITALS: BP 118/79; PULSE 100; RESP 17; O2SAT 98
== END 2024-05-03 09:21 | disposition home or self-care (01) ==
PROVIDERS: Emergency Medicine; Emergency Provider Emergency Medicine; PCP Family Medicine
DX: O03.4 Incomplete spontaneous abortion without complication (principal)
CPT/HCPCS: 36415; 76801; 76817; 80053; 84702; 85025; 85461; 85610; 85730; 86850; 86900; 86901; 96360; 96361; 99284; J7030

== ENCOUNTER 2024-07-23 10:47 | Outpatient (CLI) | payer OTHER, SELFPAY ==
[2024-07-23 11:32] LABS: Hematocrit 34.9 % (37.0-47.0); Hemoglobin 10.6 g/dL (12.0-15.0); Mean Corpuscular HGB Conc 30.4 g/dl (32-36); Mean Corpuscular Hemoglobin 22.6 pg (26-34); Mean Corpuscular Volume 74.6 fl (80-100); Platelet Count Result 381 k/mm3 (150-375); Red Blood Count 4.68 M/mm3 (4.2-5.4); Red Cell Distribution Width 13.8 % (11.5-14.5); White Blood Count 8.7 K/mm3 (4.5-10.0)
[2024-07-23 13:25] LABS: Alanine Aminotransferase 17 U/L (6-35); Albumin Level 4.1 g/dL (3.5-5.1); Alkaline Phosphatase 70 U/L (38-126); Anion Gap 5 mmol/L (4-12); Aspartate Amino Transferase 21 U/L (14-36); Bilirubin,Total 0.3 mg/dL (0.2-1.3); Blood Urea Nitrogen 8 mg/dL (7-17); Calcium 9.3 mg/dL (8.4-10.2); Carbon Dioxide 23 mmol/L (22-30); Chloride 109 mmol/L (98-107); Estimated Glomerular Filt Rate > 60; Glucose 110 mg/dL (65-110); Potassium 3.8 mmol/L (3.4-5.0); Sodium 137 mmol/L (137-145)
[2024-07-24 13:33] LABS: Homocysteine 8.8 umol/L (<10.4)
[2024-07-24 20:59] LABS: Anti Cardio Antibody IgM 6.7 MPL-U/mL; Anti Cardiolipin Antibody IgA <2.0 APL-U/mL; Anti Cardiolipin Antibody IgG <2.0 GPL-U/mL
[2024-07-26 14:43] LABS: Protein S Antigen, Free 83 % normal (50-147)
[2024-07-26 16:43] LABS: Lupus dRVVT Screen 38 sec (< OR = 45); PTT-LA Screen 30 sec (< OR = 40)
[2024-07-27 20:49] LABS: Antithrombin III Activity 98 % normal (80-135)
== END 2024-07-23 10:48 | disposition home or self-care (01) ==
PROVIDERS: PCP Family Medicine; Visit Provider Internal Medicine Hematology & Oncology
DX: D68.69 Other thrombophilia (principal)
CPT/HCPCS: 36415; 80053; 81240; 83090; 85027; 85300; 85303; 85306; 85613; 85730; 86146; 86147

== ENCOUNTER 2024-08-01 15:30 | Outpatient (CLI) | payer OTHER, SELFPAY ==
--- NOTE | ~2024-08-01 | XR_ITS ---
CHEST RADIOGRAPH, PA AND LATERAL CLINICAL HISTORY: R05.9 - Cough, unspecified . COMPARISON: 01/15/2023 TECHNIQUE: PA and lateral views of the chest. FINDINGS The cardiomediastinal silhouette is unremarkable. The lungs are clear. Visualized osseous structures and soft tissues are unremarkable. IMPRESSION: No focal infiltrate or effusion. Reviewed, dictated and finalized at location A. [employer]
== END 2024-08-01 15:31 | disposition home or self-care (01) ==
LOC: GOSHIMG 15:31
PROVIDERS: PCP Nurse Practitioner Family; Visit Provider Nurse Practitioner Family
DX: R05.9 Cough, unspecified (principal)
CPT/HCPCS: 71046